=== PATIENT | female | born 1995 | race Caucasian/White ===

== ENCOUNTER 2018-02-21 16:43 | Emergency (ER) | payer OTHER ==
[~2018-02-21] VITALS: Ht 167.6 cm; Wt 65.8 kg
== END 2018-02-21 22:24 | disposition home or self-care (01) ==
LOC: ER 16:43
DX: N93.8 Other specified abnormal uterine and vaginal bleeding (principal)

== ENCOUNTER 2018-02-26 22:43 | Emergency (ER) | payer OTHER ==
[~2018-02-26] VITALS: Ht 165.1 cm; Wt 59.0 kg
[2018-02-27] MEDS ORDERED: PEPCID AC20 MG PO (01:03)
[2018-02-27] MEDS ORDERED: PROMETHAZINE HC25 MG PO (01:03)
== END 2018-02-27 01:12 | disposition home or self-care (01) ==
LOC: ER 22:43
DX: B34.9 Viral infection, unspecified (principal); K29.70 Gastritis, unspecified, without bleeding

== ENCOUNTER 2018-03-01 12:07 | Emergency (ER) | payer OTHER ==
[~2018-03-01] VITALS: Ht 167.6 cm; Wt 64.4 kg
[~2018-03-01 12:07] MED LIST: PEPCID AC20 MG PO; PROMETHAZINE HC25 MG PO
[2018-03-01] MEDS ORDERED: ZOFRAN4 MG PO (12:35)
== END 2018-03-01 16:22 | disposition home or self-care (01) ==
LOC: ER 12:07
DX: G43.809 Other migraine, not intractable, without status migrainosus (principal)

== ENCOUNTER 2018-12-09 11:20 | Inpatient (IN) | payer OTHER ==
[~2018-12-09] VITALS: Ht 165.1 cm; Wt 71.2 kg
[~2018-12-09 11:20] MED LIST changes: +ZOFRAN4 MG PO
[2018-12-09] MEDS ORDERED: IRON325 MG PO ×2 (11:41→11:42)
[2018-12-09] MEDS ORDERED: PRENATAL TABLE1 EAC1 PO (11:41)
== END 2018-12-12 11:43 | disposition home or self-care (01) | DRG 786 ==
LOC: LDR 11:20 → OB/GYN 11:20
PROVIDERS: ADMIT Specialist
PROC: 4A1HXCZ Monitoring of Products of Conception, Cardiac Rate, External Approach (ICD-10-PCS; 2018-12-09)
PROC: 10D00Z1 Extraction of Products of Conception, Low, Open Approach (ICD-10-PCS; principal; 2018-12-09 12:00)
DX: O76 Abnormality in fetal heart rate and rhythm complicating labor and delivery (principal); O60.14X0 Preterm labor third trimester with preterm delivery third trimester, not applicable or unspecified; O69.0XX0 Labor and delivery complicated by prolapse of cord, not applicable or unspecified; Z3A.31 31 weeks gestation of pregnancy; Z37.0 Single live birth; Z22.330 Carrier of Group B streptococcus

== ENCOUNTER 2022-04-12 16:32 | Emergency (ER) | payer OTHER ==
[~2022-04-12] VITALS: Ht 165.1 cm; Wt 76.2 kg
[~2022-04-12 16:32] MED LIST changes: +IRON325 MG PO; +PRENATAL TABLE1 EAC1 PO
== END 2022-04-12 18:39 | disposition home or self-care (01) ==
LOC: ER 16:32
DX: N39.0 Urinary tract infection, site not specified (principal)